=== PATIENT | female | born 1955 | race Caucasian/White ===

== ENCOUNTER → 2017-06-14 | Outpatient (CLI) | payer MEDICARE, OTHER ==
[~2017-06-14] MED LIST: LIDOCAINE 1%, 20ML ONE; LIDOCAINE 1%-EPI 1:100K, 30ML ONE
== END ==
LOC: CFH 07:33
PROVIDERS: ATTEND Family Medicine
DX: C50.911 Malignant neoplasm of unspecified site of right female breast (principal)
CPT/HCPCS: 19083; 77065; 88305; J3490

== ENCOUNTER → 2017-07-21 | Outpatient (CLI) | payer OTHER ==
[~2017-07-21] MED LIST changes: -LIDOCAINE 1%, 20ML ONE; -LIDOCAINE 1%-EPI 1:100K, 30ML ONE; +OMNIPAQUE 350 MG/ML, 100ML BOTTLE ONE
== END | disposition home or self-care (01) ==
LOC: RAD 11:20
PROVIDERS: ATTEND Internal Medicine Hematology & Oncology
DX: C50.011 Malignant neoplasm of nipple and areola, right female breast (principal); K76.89 Other specified diseases of liver
CPT/HCPCS: 71260; 74177; 78306; A9503; Q9967

== ENCOUNTER 2017-07-27 14:00 | Day surgery (SDC) | payer OTHER ==
[~2017-07-27] VITALS: Ht 162.6 cm; Wt 57.0 kg
[~2017-07-27 14:00] MED LIST changes: +BUPIVACAINE/PF 0.5% ONE; -OMNIPAQUE 350 MG/ML, 100ML BOTTLE ONE
[2017-07-27] MEDS ORDERED: FENTANYL PF 250 MCG/5ML ONE (14:11)
[2017-07-27] MEDS ORDERED: MIDAZOLAM 1 MG/ML, 2ML ONE (14:11)
[2017-07-27] MEDS ORDERED: LACTATED RINGERS 1,000 ML IV SCH (14:12)
[2017-07-27] MEDS ORDERED: PROPOFOL 10 MG/ML, 20ML ONE (14:12)
[2017-07-27] MEDS ORDERED: DEXAMETHASONE 4 MG/ML, 1ML ONE ×2 (14:12)
[2017-07-27] MEDS ORDERED: ONDANSETRON 2MG/ML, 2ML ONE (14:12)
[2017-07-27] MEDS ORDERED: NEOSTIGMINE 1 MG/ML, 10ML ONE (14:13)
[2017-07-27] MEDS ORDERED: ROCURONIUM 10 MG/ML,10ML ONE (14:13)
[2017-07-27] MEDS ORDERED: HEPARIN 1,000 UNITS/ML, 10ML ONE (14:14)
[2017-07-27] MEDS ORDERED: ASCO500C10 PO (14:23)
[2017-07-27] MEDS ORDERED: CHOL400T2 PO (14:23)
[2017-07-27] MEDS ORDERED: MAGN400T36 PO (14:23)
[2017-07-27] MEDS ORDERED: PLEASE ENTER HEIGHT AND WEIGHT MC SCH (14:30)
[2017-07-27] MEDS ORDERED: PLEASE ENTER ALLERGIES MC SCH (14:30)
[2017-07-27 14:35] VITALS: BP 112/75
[2017-07-27] MEDS ORDERED: GLYCOPYRROLATE 0.2MG/1ML, 5ML ONE (14:58)
[2017-07-27] MEDS ORDERED: MEPERIDINE/PF 25MG/0.5ML IVPush PRN (15:00)
[2017-07-27] MEDS ORDERED: OXYcodone 5 MG/5 ML ORAL.SOL UDC PO PRN (15:00)
[2017-07-27] MEDS ORDERED: PROMETHAZINE 12.5 MG SUPP PR PRN (15:00)
[2017-07-27] MEDS ORDERED: ONDANSETRON 2MG/ML, 2ML IVPush PRN (15:00)
[2017-07-27] MEDS ORDERED: ACETAMINOPHEN 325 MG TABLET PO PRN (15:00)
[2017-07-27] MEDS ORDERED: FENTANYL PF 100 MCG/2ML IV PRN (15:00)
[2017-07-27] MEDS ORDERED: HYDROmorphone 1 MG/ML, 1ML IV PRN (15:00)
[2017-07-27] MEDS ORDERED: SODIUM CHLORIDE 0.9% PF 10ML ONE (15:05)
[2017-07-27] MEDS ORDERED: CEFAZOLIN 1,000 MG ONE ×2 (15:05→15:06)
[2017-07-27] MEDS ORDERED: BUPIVACAINE/PF-EPI 0.5% 1:200K INFIL ONE (15:17)
[2017-07-27] MEDS ORDERED: OXYcodone 5 MG/5 ML ORAL.SOL UDC ONE (16:07)
[2017-07-27] MEDS ORDERED: ACETAMINOPHEN 650 MG/20.3 ML UDC ONE (16:07)
== END 2017-07-27 17:00 ==
LOC: OUT 14:00
PROVIDERS: ATTEND Surgery
DX: Z45.2 Encounter for adjustment and management of vascular access device (principal); F41.9 Anxiety disorder, unspecified; C50.911 Malignant neoplasm of unspecified site of right female breast; Z80.3 Family history of malignant neoplasm of breast; Z88.1 Allergy status to other antibiotic agents
CPT/HCPCS: 36561; 71045; 77001; 93005; C1788; J0690; J1100; J1644; J2250; J2405; J2704; J2710; J3010; J3490; J7120

== ENCOUNTER → 2017-10-30 | Outpatient (CLI) | payer OTHER ==
[~2017-10-30] MED LIST changes: +ASCO500C10 PO; -BUPIVACAINE/PF 0.5% ONE; +CHOL400T2 PO; +MAGN400T36 PO
== END ==
LOC: CFH 10:54
PROVIDERS: ATTEND Internal Medicine Hematology & Oncology
DX: C50.011 Malignant neoplasm of nipple and areola, right female breast (principal); R59.0 Localized enlarged lymph nodes

== ENCOUNTER → 2017-11-27 | Outpatient (CLI) | payer OTHER | LOC: CFH 11:36 | PROVIDERS: ATTEND Internal Medicine Hematology & Oncology | DX: C50.011 Malignant neoplasm of nipple and areola, right female breast (principal) ==

== ENCOUNTER 2018-02-03 22:13 | Emergency (ER) | payer OTHER ==
[~2018-02-03] VITALS: Ht 162.6 cm; Wt 54.0 kg
[2018-02-03 23:41] VITALS: BP 108/68
== END 2018-02-03 23:43 | disposition home or self-care (01) ==
LOC: ED 23:35
DX: H43.12 Vitreous hemorrhage, left eye (principal); Z88.1 Allergy status to other antibiotic agents
CPT/HCPCS: 99282; 99283

== ENCOUNTER → 2018-04-06 | Outpatient (CLI) | payer OTHER | END | disposition home or self-care (01) | LOC: ROC 09:10 | PROVIDERS: ATTEND Radiology Radiation Oncology | DX: Z08 Encounter for follow-up examination after completed treatment for malignant neoplasm (principal); C50.111 Malignant neoplasm of central portion of right female breast; Z88.1 Allergy status to other antibiotic agents; Z88.2 Allergy status to sulfonamides | CPT/HCPCS: 99212; G0463 ==

== ENCOUNTER → 2018-04-26 | Outpatient (CLI) | payer OTHER ==
[~2018-04-26] MED LIST changes: +OMNIPAQUE 350 MG/ML, 100ML BOTTLE ONE
== END | disposition home or self-care (01) ==
LOC: PETCFH 09:13
PROVIDERS: ATTEND Internal Medicine Hematology & Oncology
DX: C50.011 Malignant neoplasm of nipple and areola, right female breast (principal); Z85.3 Personal history of malignant neoplasm of breast
CPT/HCPCS: 71260; 74177; 78306; A9503; Q9967